=== PATIENT | female | born 1985 | race Caucasian/White ===

== ENCOUNTER 2016-03-08 03:43 | Inpatient (IN) | payer BC ==
[2016-03-08 06:12] LABS: Hematocrit 35 % (35-47); Hemoglobin 11.9 g/dl (12.0-16.0); Mean Corpuscular HGB Conc 34 g/dl (31-36); Mean Corpuscular Hemoglobin 31 pg (27-31); Mean Corpuscular Volume 91 fL (80-97); Mean Platelet Volume 9 um3 (7.4-10.4); Red Blood Count 3.86 10^6/ul (4.0-5.4); Red Cell Distribution Width 14 % (10.5-15); White Blood Count 9.7 10^3/ul (3.5-10.8)
[2016-03-08] MEDS ORDERED: OBEPIDURAL* 250 ML ONE (08:15)
[2016-03-08] MEDS ORDERED: fentaNYL* 50 MCG/ML 2 ML VIAL (100 MCG VIAL) ONE (08:52)
[2016-03-08] MEDS ORDERED: Witch Hazel PAD* JAR TOPICAL PRN (11:02)
[2016-03-08] MEDS ORDERED: oxyCODONE/Acetamin 5/325 MG* TAB PO PRN (11:02)
[2016-03-08] MEDS ORDERED: Dibucaine 1% 28.35 GM TUBE PR PRN (11:02)
[2016-03-08] MEDS ORDERED: Acetaminophen TAB* 325 MG PO PRN (11:02)
[2016-03-08] MEDS ORDERED: Phenylephrine INJ* 10 MG/ML 1 ML VIAL (10 MG) ONE (12:48)
[2016-03-08] MEDS ORDERED: Phenylephrine IV* 40 MCG/ML 10 ML SYRINGE ONE (12:49)
[2016-03-08] MEDS: Docusate CAP* 100 MG PO SCH ×2 (14:27→20:13)
[2016-03-08] MEDS: Ibuprofen TAB* 600 MG PO PRN (16:45)
[2016-03-09] MEDS: Ibuprofen TAB* 600 MG PO PRN ×3 (01:13→17:42)
[2016-03-09 07:07] LABS: Hematocrit 30 % (35-47); Hemoglobin 9.9 g/dl (12.0-16.0); Mean Corpuscular HGB Conc 33 g/dl (31-36); Mean Corpuscular Hemoglobin 31 pg (27-31); Mean Corpuscular Volume 93 fL (80-97); Mean Platelet Volume 9 um3 (7.4-10.4); Red Blood Count 3.19 10^6/ul (4.0-5.4); Red Cell Distribution Width 14 % (10.5-15); White Blood Count 7.5 10^3/ul (3.5-10.8)
[2016-03-09] MEDS: Docusate CAP* 100 MG PO SCH ×3 (08:44→21:04)
[2016-03-09] MEDS: Ferrous Gluconate TAB* 324 MG TAB PO SCH ×2 (09:16→21:04)
[2016-03-10] MEDS: Ibuprofen TAB* 600 MG PO PRN ×2 (03:56→14:36)
[2016-03-10 07:56] VITALS: BP 121/68
[2016-03-10] MEDS: Docusate CAP* 100 MG PO SCH ×3 (08:30→14:37)
[2016-03-10] MEDS: Ferrous Gluconate TAB* 324 MG TAB PO SCH (08:52)
== END 2016-03-10 15:15 | disposition home or self-care (01) | DRG 560 ==
LOC: MCHOBOUT 03:43 → MCHOB 05:33
PROVIDERS: ADMIT Midwife; ATTEND Obstetrics & Gynecology
PROC: 10E0XZZ Delivery of Products of Conception, External Approach (ICD-10-PCS; principal; 2016-03-08)
PROC: 10907ZC Drainage of Amniotic Fluid, Therapeutic from Products of Conception, Via Natural or Artificial Opening (ICD-10-PCS; 2016-03-08)
PROC: 0KQM0ZZ Repair Perineum Muscle, Open Approach (ICD-10-PCS; 2016-03-08)
DX: O48.0 Post-term pregnancy (principal); D64.9 Anemia, unspecified; O70.1 Second degree perineal laceration during delivery; O90.81 Anemia of the puerperium; Z82.49 Family history of ischemic heart disease and other diseases of the circulatory system; Z3A.40 40 weeks gestation of pregnancy; Z37.0 Single live birth
CPT/HCPCS: 36415; 85025; 86850; 86900; 86901; A9270-GY; J3010

== ENCOUNTER 2017-08-09 08:45 | Emergency (ER) | payer BC ==
[2017-08-09 08:53] VITALS: BP 132/69
--- NOTE | 2017-08-09 10:39 | UC ---
Saba Marc Gabriel, scribed for NeliJose Elias tyler MD on 08/09/17 at 0955 . Eye Complaint HPI - HPI Summary HPI Summary: This patient is a 32 year old F [place] [facility] [place] chief complaint of right eye pain that began this morning when she woke up. Pts daughter had pink eye on 08-03-17. The patient rates the pain 2/10 in severity. Patient reports erythema, eye discharge, and watering. Patient denies neck pain, ABD pain, and left eye symptoms. Pt has had a general illness for the past 3 days. This has presented with nasal discharge and sore throat. note: Vital signs otto, afebrile. 2/10 right eye discomfort. Pt is not on antihypertensive. Visit history: noncontributory to present complaint. Nurse note: right eye possible pinkeye child at home has same - History of Current Complaint Chief Complaint: UCEar Stated Complaint: EYE COMPLAINT Time Seen by Provider: 08/09/17 09:49 Hx Obtained From: Patient Hx Last Menstrual Period: 07/09/17 Onset/Duration: Lasting Hours, Still Present Timing: Constant Severity Initially: Mild Severity Currently: Mild Pain Intensity: 2 Pain Scale Used: 0-10 Numeric Location of Injury: Conjunctiva Associated Signs And Symptoms: Positive: Negative - neck pain, ABD pain, and left eye symptoms, Drainage (Clear) - Allergies/Home Medications Allergies/Adverse Reactions: Allergies Allergy/AdvReac Type Severity Reaction Status Date / Time No Known Allergies Allergy Verified 07/13/16 09:24 Home Medications: Home Medications Norethindrone-Ethinyl Estrad [Nortrel 1-35 28 Tablet] 08/09/17 [History] PMH/Surg Hx/FS Hx/Imm Hx Other History Of: Negative For: HIV, Hepatitis B, Hepatitis C, Anticoagulant Therapy - Surgical History Surgical History: Yes Surgery Procedure, Year, and Place: 2007 WISDOM TEETH EXTRACTION, OFFICE. D&C 2012 with miscarraige - Family History Known Family History: Positive: Diabetes Negative: Cardiac Disease, Hypertension, Renal Disease, Respiratory Disease, Seizure Disorder, Blood Disorder - Social History Occupation: Employed Full-time Lives: With Family Alcohol Use: Rare Substance Use Type: None Smoking Status (MU): Never Smoked Tobacco Have You Smoked in the Last Year: No - Immunization History Most Recent Influenza Vaccination: 01/01/2016 Most Recent Tetanus Shot: 08/04/13 Most Recent Pneumonia Vaccination: Unknown Review of Systems Eyes: Negative - left eye, Drainage, Eye Redness, Other - right eye pain ENT: Sore Throat, Nasal Discharge Musculoskeletal: Negative - neck pain All Other Systems Reviewed And Are Negative: Yes - Comments Additional Review of Systems Comments: Positive: sore throat, nasal discharge, right eye pain, erythema, eye discharge , and watering. Negative: neck pain, ABD pain, and left eye symptoms. Physical Exam - Summary Physical Exam Summary: Appearance: The patient is well-appearing, is in no pain distress, and is well- nourished. Eyes: PERRLA, RIGHT EYE DIFFUSE INJECTION NO PERILIMBAL ERYTHEMA CORNEA APPEARS CLEAR. ENT: The hearing is grossly normal and the TMs are normal. There is no muffled or hoarse voice. BILATERAL SWOLLEN TONSILS WITH EXUDATE. THE RIGHT IS WORSE THAN THE LEFT. Neck: The neck is supple and there is no lymphadenopathy. Respiratory: The chest is nontender. The lungs are clear, there are normal breath sounds, and there is no respiratory distress. Cardiovascular: Heart is regular rate and rhythm. There is no murmur. Abdomen: The abdomen is soft and nontender. There is no organomegaly. Bowel sounds: present Musculoskeletal: Strength is intact. The patient moves all extremities. Neurological: The patient is alert. Psychological: The patient displays age appropriate behavior Skin: Negative for rashes. Triage Information Reviewed: Yes Vital Signs: Initial Vital Signs Temp 98 F 08/09/17 08:50 Pulse 84 08/09/17 08:50 Resp 16 08/09/17 08:50 BP 132/69 08/09/17 08:50 Pulse Ox 98 08/09/17 08:50 Vital Signs Reviewed: Yes Eye Complaint Course/Dx - Course Course Of Treatment: Pt comes in with red eye and sore throat. Dx conjunctivitis. Rapid strep was positive and I will start her on Polytrim eye drops and penicillin. Patient has been given an antibiotic because findings on physical examination and health history. The risks and benefits of antibiotic treatment have been discussed and patient has voiced understanding of these risks including the possibility of developing clostridium difficile enterocolitis. Medications have been included in the original chart and reviewed. Pre-Hypertensive BP reading of 132/69; patient referred to PCP for follow-up. note that prescription was changed to read 250mg tab, twice a day for 10 days, total of 20. - Differential Dx/Diagnosis Differential Diagnosis/HQI/PQRI: Other - Viral URI vs bacterial conjunctivitis; viral sore throat v. strep throat Provider Diagnoses: right eye conjunctivitis and strep tonsillitis Discharge - Sign-Out/Discharge Documenting (check all that apply): Discharge/Admit/Transfer - Discharge Plan Condition: Stable Disposition: HOME Prescriptions: Penicillin VK TAB* [Penicillin VK 250 mg Tab*] 250 mg PO BID #20 tab MDD 2 Polymyx/Trimethoprim OPTH* [Polytrim OPHTH*] 2 drop RIGHT EYE Q4H #1 btl MDD 8 Patient Education Materials: Strep Throat (ED), Conjunctivitis (ED) Forms: *Work Release Referrals: No Primary Care Phys,NOPCP [Primary Care Provider] - Additional Instructions: Your blood pressure reading today was 132/69, indicating HYPERTENSION/ PREHYPERTENSION. Follow-up with your primary care provider within 4 weeks for blood pressure readings and further evaluation. PLEASE SEEK CARE AT THE EMERGENCY DEPARTMENT IF SYMPTOMS WORSEN OR IF NEW SYMPTOMS DEVELOP. 1. You have right eye conjunctivitis. 2. Polytrim ophthalmic solution: 2 drops every two hours while awake for two days, then two drops every four hours while awake for five days or for one day after condition has completely resolved. Treat other eye before sleep. 3. for sore throat: You have strep throat. Treatment: penicillin, twice a day for 10 days. USEFUL HOME REMEDIES: WARM WATER GARGLES, WITH TSP OF SALT PER 8 OUNCES OF WATER, GARGLE FOR A FEW SECONDS AND SPIT OUT; GARGLE AND SPIT OUT; EVERY THREE HOURS. AND/OR: WARM WATER OR TEA, HONEY AND LEMON; 2-3 CUPS A DAY. FOR SORE THROAT: KEEP THROAT MOIST WITH LOZENGES; TEA AND HONEY. USE WARM WATER GARGLES 3-4 TIMES A DAY. - Billing Disposition and Condition Condition: STABLE Disposition: Home The documentation as recorded by the Saba chavez Gabriel accurately reflects the service I personally performed and the decisions made by , Jose Elias Prabhakar MD.
== END 2017-08-09 10:41 | disposition home or self-care (01) ==
LOC: UCEAST 08:45
DX: H10.9 Unspecified conjunctivitis (principal); J03.00 Acute streptococcal tonsillitis, unspecified
CPT/HCPCS: 87651; 99212; G0463

== ENCOUNTER 2017-10-05 15:22 | Emergency (ER) | payer BC ==
[2017-10-05 15:56] VITALS: BP 110/56
--- NOTE | 2017-10-06 12:11 | UC ---
Throat Pain/Nasal Hossein HPI - HPI Summary HPI Summary: 32 y/o female presents to the urgent care c/o sore throat and low grade fever since Wednesday10/03/2017. Pt also states body aches. Pain w. swallowing is 6/10 associated w/ mild cough. Pt has not taking anything to alleviate symptoms. Pt denies SOB, chest pain, abdominal pain, N/V/D. - History of Current Complaint Chief Complaint: UCRespiratory Stated Complaint: THROAT PAIN Time Seen by Provider: 10/05/17 16:54 Hx Obtained From: Patient Hx Last Menstrual Period: 07/09/17 ?: No Onset/Duration: Gradual Onset, Lasting Days - 2 days, Still Present, Worse Since - today Severity: Moderate Pain Intensity: 7 Pain Scale Used: 0-10 Numeric Cough: Nonproductive Associated Signs & Symptoms: Positive: Dysphagia, Fever - Epiglottits Risk Factors Epiglottis Risk Factors: Negative - Allergies/Home Medications Allergies/Adverse Reactions: Allergies Allergy/AdvReac Type Severity Reaction Status Date / Time No Known Allergies Allergy Verified 10/05/17 15:56 PMH/Surg Hx/FS Hx/Imm Hx Previously Healthy: Yes - Pt denies PMHX Other History Of: Negative For: HIV, Hepatitis B, Hepatitis C, Anticoagulant Therapy - Surgical History Surgical History: Yes Surgery Procedure, Year, and Place: 2007 WISDOM TEETH EXTRACTION, OFFICE. D&C 2012 with miscarraige - Family History Known Family History: Positive: Diabetes Negative: Cardiac Disease, Hypertension, Renal Disease, Respiratory Disease, Seizure Disorder, Blood Disorder - Social History Occupation: Employed Full-time Lives: With Family Alcohol Use: Rare Substance Use Type: None Smoking Status (MU): Never Smoked Tobacco Have You Smoked in the Last Year: No - Immunization History Most Recent Influenza Vaccination: 01/01/2016 Most Recent Tetanus Shot: 08/04/13 Most Recent Pneumonia Vaccination: Unknown Review of Systems Constitutional: Fever, Chills Skin: Negative Eyes: Negative ENT: Sore Throat Respiratory: Cough - dry Cardiovascular: Negative Gastrointestinal: Negative Genitourinary: Negative Motor: Negative Neurovascular: Negative Musculoskeletal: Negative Neurological: Negative Psychological: Negative Is Patient Immunocompromised?: No All Other Systems Reviewed And Are Negative: Yes Physical Exam - Summary Physical Exam Summary: VITAL SIGNS: Reviewed. GENERAL: Patient is a well developed and nourished female who is sitting comfortable in the examining table. Patient is not in any acute respiratory distress. HEAD AND FACE: No signs of trauma. No ecchymosis, hematomas or skull depressions. No sinus tenderness. EYES: PERRLA, EOMI x 2, No injected conjunctiva, no nystagmus. No photophobia. EARS: Hearing grossly intact. Ear canals and tympanic membranes are within normal limits. MOUTH: Positive pharynx with erythema, exudates, palatal petechiae. B/L tonsillar enlargement with exudate. Uvula in midline. NECK: Supple, trachea is midline, Positive anterior cervical lymphadenopathy, no JVD, no carotid bruit, no c-spine tenderness, neck with full ROM. No meningeal signs, no Kernig's or brudzinskis signs. CHEST: Symmetric, no tenderness at palpation LUNGS: Clear to auscultation bilaterally. No wheezing or crackles. CVS: Regular rate and rhythm, S1 and S2 present, no murmurs or gallops appreciated. ABDOMEN: Soft, non-tender. No signs of distention. No rebound no guarding, and no masses palpated. Bowel sounds are normal. EXTREMITIES: FROM in all major joints, no edema, no cyanosis or clubbing. NEURO: Alert and oriented x 3. No acute neurological deficits. Speech is normal and follows commands. SKIN: Dry and warm Triage Information Reviewed: Yes Vital Signs: Initial Vital Signs Temp 98.2 F 10/05/17 15:53 Pulse 78 10/05/17 15:53 Resp 18 10/05/17 15:53 BP 110/56 10/05/17 15:53 Pulse Ox 100 10/05/17 15:53 Throat Pain/Nasal Course/Dx - Course Course Of Treatment: 32 y/o female presents to the urgent care c/o sore throat and low grade fever since Wednesday10/03/2017. Pt also states body aches. Pain w. swallowing is 6/10 associated w/ mild cough. Pt has not taking anything to alleviate symptoms. Pt denies SOB, chest pain, abdominal pain, N/V/D.Hx obtained. pt w/ pharyngitis on examination. Rapid strep ordered: result: positive. Strep pharyngitis. Rx Amoxicillin PO and Ibuprofen PO for pain and swelling. PT Advised on hand washing to avoid spreading. Also advised to rest, eat well and avoid strenuous exercise. If symptoms do not improve or worsen advised to return to the urgent care or f/u with her PCP for further evaluation and treatment. PT understood and agreed - Differential Dx/Diagnosis Differential Diagnosis/HQI/PQRI: Influenza, Mononucleosis, Pharyngitis, Tonsillitis, URI Provider Diagnoses: 1- Strep pharyngitis Discharge - Sign-Out/Discharge Documenting (check all that apply): Patient Departure - D/c home - Discharge Plan Condition: Stable Disposition: HOME Prescriptions: Amoxicillin PO (*) [Amoxicillin 500 MG CAP*] 500 mg PO Q12H #20 cap Ibuprofen TAB* [Motrin TAB* 800 MG] 800 mg PO Q6H PRN #30 tab PRN Reason: Sore Throat Patient Education Materials: Strep Throat (ED) [place] [facility] [place]] - If Needed Additional Instructions: 1- Please take the full course of the antibiotic to avoid resistance. 2-Please take ibuprofen PO q6-8hrs prn as instructed after meals to alleviate pain and swelling. Increase fluid intake, eat well, rest and avoid strenuous exercise 3-If symptoms do not improve or worsen please return to the urgent care or f/u with your PCP for further evaluation and treatment. Per institutional requirements, I have reviewed the chart, however, I was not consulted specifically or made aware of this patient by the above midlevel provider. I did not personally evaluate, interact with , or disposition this patient. - Billing Disposition and Condition Condition: STABLE Disposition: Home
== END 2017-10-05 17:24 | disposition home or self-care (01) ==
LOC: UCEAST 15:22
DX: J02.0 Streptococcal pharyngitis (principal)
CPT/HCPCS: 87651; 99212; G0463

== ENCOUNTER 2018-06-19 07:42 | Emergency (ER) | payer SELFPAY ==
--- NOTE | 2018-06-19 07:47 | UC ---
Eye Complaint HPI - HPI Summary HPI Summary: Patient is a 33 year old female , who present today to the urgent care with left eye foreign body sensation since yesterday. She feels that her contact lens folded in her left eye after she but it and yesterday and moved are around. She reports foreign body sensation and scratchiness when she closes her eyes. There is small amount of crusting- yellowish that she noted today morning. Denies any vision disturbance - History of Current Complaint Stated Complaint: EYE COMPLAINT Time Seen by Provider: 06/19/18 07:46 Hx Obtained From: Patient Hx Last Menstrual Period: 07/09/17 ?: No - she took her last pill yesterday - Allergies/Home Medications Allergies/Adverse Reactions: Allergies Allergy/AdvReac Type Severity Reaction Status Date / Time No Known Allergies Allergy Verified 10/05/17 15:56 PMH/Surg Hx/FS Hx/Imm Hx - Additional Past Medical History Additional PMH: no significant past medical history Previously Healthy: Yes Other History Of: Negative For: HIV, Hepatitis B, Hepatitis C, Anticoagulant Therapy - Surgical History Surgical History: Yes Surgery Procedure, Year, and Place: 2007 WISDOM TEETH EXTRACTION, OFFICE. D&C 2012 with miscarraige - Family History Known Family History: Positive: Diabetes Negative: Cardiac Disease, Hypertension, Renal Disease, Respiratory Disease, Seizure Disorder, Blood Disorder - Social History Alcohol Use: Rare Substance Use Type: None Smoking Status (MU): Never Smoked Tobacco Have You Smoked in the Last Year: No - Immunization History Most Recent Influenza Vaccination: 01/01/2016 Most Recent Tetanus Shot: 08/04/13 Most Recent Pneumonia Vaccination: Unknown Review of Systems All Other Systems Reviewed And Are Negative: Yes Constitutional: Positive: Negative Skin: Positive: Negative Eyes: Positive: Drainage, Eye Redness, Other - foreign body sensation in the eye ENT: Positive: Negative Respiratory: Positive: Negative Cardiovascular: Positive: Negative Gastrointestinal: Positive: Negative Genitourinary: Positive: Negative Motor: Positive: Negative Neurovascular: Positive: Negative Musculoskeletal: Positive: Negative Neurological: Positive: Negative Is Patient Immunocompromised?: No Physical Exam - Summary Physical Exam Summary: Physical Exam: Const: Appears well. No signs of apparent distress present. Alert and oriented x 3. Musculo: Walks with a normal gait. Head/Face: Atraumatic, normocephalic on inspection. Eyes: EOMI and PERRLA in both eyes. left eye: There is minimal erythema of conjunctiva if any. No significant discharge noted. ENT: Hearing normal, Respiratory: Respirations are unlabored. Lungs clear to auscultation bilaterally, no wheezing , rhonchi or rales noted . CVS: Regular rate and Rhythm, S1S2 normal , no murmurs identified. Extremities: Peripheral circulation is grossly normal. Pulses 2+ Abdomen : Soft non tender , nondistended , Bowel sounds present . No guarding , rebound tenderness or rigidity noted. Skin: No lesions or rash located on the upper extremities or on the lower extremities. Neuro: Cranial nerves II to XII intact, motor and sensory intact. DTR Intact bilaterally. Mood is normal. Affect is normal. Triage Information Reviewed: Yes Vital Signs Reviewed: Yes Procedures - Procedure Summary Procedure Summary: left eye foreign body removal: Contact lens was removed using a Q-tip.Contact lens was broken into 2 pieces and went aligned up completes the full contact lens. No part of the contact lens was left behind the left eye. Fluorescein staining and brothers lamp examination: Mild linear corneal abrasion noted in the lower half of the cornea, horizontally aligned. Eye Complaint Course/Dx - Course Course Of Treatment: During the visit today, the foreign body of her eye which is the contact lens was taken out without difficulty. Upon fluorescein staining, she was noted to have a mild corneal abrasion of the lower half of the cornea. We discussed the findings and further plan using the eyedrops and follow up with ophthalmology. I will prescribe the medication to the pharmacy . Patient expressed understanding . - Differential Dx/Diagnosis Provider Diagnosis: Foreign body of left eye, Corneal abrasion of left eye due to contact lens Discharge - Sign-Out/Discharge Documenting (check all that apply): Patient Departure All imaging exams completed and their final reports reviewed: No Studies - Discharge Plan Condition: Stable Disposition: HOME Prescriptions: Ciprofloxacin 0.3% OPTH.DIANELYS* [Cipro 0.3% Opth*] 1 drop LEFT EYE Q6H 5 Days #1 btl Patient Education Materials: Corneal Abrasion (ED), Eye Foreign Body (ED) Referrals: No Primary Care Phys,NOPCP [Primary Care Provider] - Richie Colon MD [Medical Doctor] - 3 Days Additional Instructions: Please start using her eyedrops as prescribed to the pharmacy . Follow up with ophthalmology in 3 - 5 days. Patients blood pressure slightly high in Urgent care today ( prehypertensive range) , plan follow up with PCP for recheck. Return to Urgent care / ER if symptoms get worse. - Billing Disposition and Condition Condition: STABLE Disposition: Home
[2018-06-19 08:02] VITALS: BP 127/75
[2018-06-19] MEDS ORDERED: Fluorescein Sodium TOPICAL* 1 MG TEST STRIP OPHTHALMIC ONE (08:17)
[2018-06-19] MEDS ORDERED: Tetracaine 0.5% OPTH.SOL 4 ML* 1 DROP BTL LEFT EYE ONE (08:18)
== END 2018-06-19 08:57 | disposition home or self-care (01) ==
LOC: UCEAST 07:42
DX: H18.822 Corneal disorder due to contact lens, left eye (principal); T15.02XA Foreign body in cornea, left eye, initial encounter; X58.XXXA Exposure to other specified factors, initial encounter; Y92.9 Unspecified place or not applicable
CPT/HCPCS: 65220; 99212; A9270-GY; G0463